=== PATIENT | female | born 1975 | race Two or more races ===

== ENCOUNTER 2018-09-29 16:14 | Inpatient (IN) | payer OTHER ==
[2018-09-29 22:06] VITALS: BMI 53.8
--- NOTE | 2018-09-30 00:35 | HP ---
CIWA Score - Admission Criteria [facility]ASAS Guidelines: Admission for Medically Managed Detox: Requires at least one of the followin. CIWA greater than 12 2. Seizures within the past 24 hours 3. Delirium tremens within the past 24 hours 4. Hallucinations within the past 24 hours 5. Acute intervention needed for co occurring medical disorder 6. Acute intervention needed for co occurring psychiatric disorder 7. Severe withdrawal that cannot be handled at a lower level of care (continued vomiting, continued diarrhea, abnormal vital signs) requiring intravenous medication and/or fluids 8. Admission ROS S - HPI Chief Complaint: Seeking admission to Rehab. Allergies/Adverse Reactions: Allergies Allergy/AdvReac Type Severity Reaction Status Date / Time amoxicillin Allergy Severe Rash Verified 09/29/18 21:55 ciprofloxacin [From Cipro] Allergy Severe Rash Verified 09/29/18 21:55 History of Present Illness: 43 years old female with a long history of cocaine and marijuana dependence is seeking admission to Rehab. Patient reports that this is her first admission to [facility] and first Rehabilitation. She has history of Sarcoidosis, hypertension, PCOS, Morbid obesity, stress incontinence, anxiety and depression. She reports suicide attempt at 33 years and denies suicidal ideation at this time. - Ebola screening Have you traveled outside of the country in the last 21 days: No Have you had contact with anyone from an Ebola affected area: No Do you have a fever: No - Review of Systems Constitutional: No Symptoms Reported EENT: reports: No Symptoms Reported Respiratory: reports: No Symptoms reported Cardiac: reports: No Symptoms Reported GI: reports: No Symptoms Reported : reports: No Symptoms Reported Musculoskeletal: reports: No Symptoms Reported Integumentary: reports: No Symptoms Reported Neuro: reports: No Symptoms reported Endocrine: reports: No Symptoms Reported Hematology: reports: No Symptoms Reported Psychiatric: reports: Judgement Intact, Mood/Affect Appropiate, Orientated x3 Other Systems: Reviewed and Negative Patient History - Patient Medical History Hx Anemia: No Hx Asthma: No Hx Chronic Obstructive Pulmonary Disease (COPD): No Hx Cancer: No Hx Cardiac Disorders: No Hx Congestive Heart Failure: No Hx Hypertension: Yes (HCTZ) Hx Hypercholesterolemia: No Hx Pacemaker: No HX Cerebrovascular Accident: No Hx Seizures: No Hx Diabetes: No Hx Gastrointestinal Disorders: No Hx Liver Disease: No Hx Genitourinary Disorders: Yes (STRESS INCONTINENCE) Hx Sexually Transmitted Disorders: No Hx Renal Disease (ESRD): No Hx Thyroid Disease: No Hx Human Immunodeficiency Virus (HIV): No (Negative 2018) Hx Hepatitis C: No Hx Depression: Yes (Wellbutrin) Hx Suicide Attempt: Yes (Attempt at age 33, denies sucidal ideation at this time ) Hx Bipolar Disorder: No Hx Schizophrenia: No Other Medical History: PCOS, STRESS INCONTINENCE, SARCOIDOSIS, ANXIETY -Not on medication - Patient Surgical History Past Surgical History: Yes Hx Neurologic Surgery: No Hx Cataract Extraction: No Hx Cardiac Surgery: No Hx Lung Surgery: No Hx Breast Surgery: No Hx Breast Biopsy: No Hx Abdominal Surgery: No Hx Appendectomy: No Hx Cholecystectomy: No Hx Genitourinary Surgery: No Hx Section: Yes (2014) Hx Orthopedic Surgery: No Hx Hysterectomy: No Other Surgical History: EYE SURGERY JUNE 2017, TONSILLECTOMY AT AGE 5 Anesthesia Reaction: No - PPD History Previous Implant?: Yes Documented Results: Negative w/o proof Implanted On Prior R Admission?: No PPD to be Administered?: Yes - Reproductive History Patient is a Female of Child Bearing Age (11 -55 yrs old): Yes Last Menstrual Period: 09/24/18 Patient : No - Smoking Cessation Smoking history: Current every day smoker Have you smoked in the past 12 months: Yes Aproximately how many cigarettes per day: 20 Hx Chewing Tobacco Use: No Initiated information on smoking cessation: Yes 'Breaking Loose' booklet given: 09/30/18 - Substance & Tx. History Hx Alcohol Use: No Hx Substance Use: Yes Substance Use Type: Cocaine, Marijuana Hx Substance Use Treatment: No - Substances abused Cocaine Substance route: Inhalation Frequency: Daily Amount used: 3 bags Age of first use: 42 Date of last use: 09/25/18 Marijuana/Hashish Substance route: Smoking Frequency: 1-3 times last 30 days Amount used: 2 blunt Age of first use: 16 Date of last use: 09/28/18 Family Disease History - Family Disease History Family Disease History: Diabetes: Father (LEUKEMIA), Mother (HTN), Heart Disease : Mother, Other: Grandparent (CERICAL CA, LUNG CANCER), Father Admission Physical Exam BHS - Vital Signs Vital Signs: Vital Signs - 24 hr 09/29/18 09/29/18 21:47 22:52 Temperature 97.6 F 97.6 F Pulse Rate 88 88 Respiratory 18 18 Rate Blood Pressure 139/83 139/83 - Physical General Appearance: Yes: No Apparent Distress, Nourished, Other HEENTM: Yes: Within Normal Limits Respiratory: Yes: Normal Breath Sounds, No Respiratory Distress Neck: Yes: Supple Breast: Yes: Breast Exam Deferred Cardiology: Yes: Regular Rhythm, Regular Rate Abdominal: Yes: Normal Bowel Sounds, Protuberent Genitourinary: Yes: Within Normal Limits Back: Yes: Normal Inspection Musculoskeletal: Yes: Within Normal Limits Extremities: Yes: Normal Inspection Neurological: Yes: Within Normal Limits, Alert, Normal Mood/Affect Integumentary: Yes: Warm Lymphatic: Yes: Within Normal Limits - Diagnostic (1) Cocaine dependence Current Visit: Yes Status: Chronic Qualifiers: Substance use status: uncomplicated Qualified Code(s): F14.20 - Cocaine dependence, uncomplicated (2) Marijuana dependence Current Visit: Yes Status: Chronic (3) Hypertension Current Visit: Yes Status: Chronic Qualifiers: Hypertension type: essential hypertension Qualified Code(s): I10 - Essential (primary) hypertension (4) Nicotine dependence Current Visit: Yes Status: Chronic Qualifiers: Nicotine product type: cigarettes Substance use status: uncomplicated Qualified Code(s): F17.210 - Nicotine dependence, cigarettes, uncomplicated (5) PCOS (polycystic ovarian syndrome) Current Visit: Yes Status: Chronic (6) Stress incontinence Current Visit: Yes Status: Chronic (7) Depression Current Visit: Yes Status: Chronic Qualifiers: Depression Type: unspecified Qualified Code(s): F32.9 - Major depressive disorder, single episode, unspecified (8) Anxiety Current Visit: Yes Status: Chronic Cleared for Admission S - Detox or Rehab [facility] Level of Care: Observation Bed Claeared for Rehab Admission: Yes Breathalyzer - Breathalyzer Breathalyzer: 0 Urine Drug Screen - Test Device Lot number: [id number] Expiration date: 07/15/20 - Control Is test valid?: Yes - Results Drug screen NEGATIVE: No Urine drug screen results: THC-Marijuana, TREVOR-Cocaine Inpatient Rehab Admission - Rehab Decision to Admit Inpatient rehab admission?: Yes - Initial Determination Are CD services needed?: No Free of communicable disease: Yes Not in need of hospitalization: Yes - Rehab Admission Criteria Previous failed treatment: Yes Poor recovery environment: Yes Comorbidities: Yes Lacks judgement: No Patient is meeting Inpatient Rehab admission criteria:: Yes
[2018-09-30] MEDS ORDERED: P-EPHED 60MG/TRIPROLIDI 2.5MG TABLET PO PRN (00:54)
[2018-09-30] MEDS ORDERED: ACETAMINOPHEN 325 MG TABLET (FP) PO PRN (00:54)
[2018-09-30] MEDS ORDERED: LOPERAMIDE HCL 2 MG CAPSULE PO PRN (00:54)
[2018-09-30] MEDS ORDERED: MAGNESIUM HYDROX 2400MG/30ML ORAL SUSPENSION 30 ML CUP PO PRN (00:54)
[2018-09-30] MEDS ORDERED: MENTHOL/PHENOL 1 EACH UD MM PRN (00:54)
[2018-09-30] MEDS ORDERED: MAGNESIUM CITRATE 300 ML BOTTLE PO PRN (00:54)
[2018-09-30] MEDS ORDERED: IBUPROFEN 400 MG TABLET (FP) PO PRN (00:54)
[2018-09-30] MEDS ORDERED: guaiFENesin 200 MG/10 ML 10 ML UNIT-DOSE CUPS PO PRN (00:54)
--- NOTE | 2018-09-30 07:47 | PN ---
S Progress Note Note: Patient's blood pressure this morning is B/P 168/111. Patient is asymptomatic. Vital Signs Temperature 97.9 F 09/30/18 07:15 Pulse Rate 94 H 09/30/18 07:15 Respiratory Rate 18 09/30/18 07:15 Blood Pressure 168/111 H 09/30/18 07:15 O2 Sat by Pulse Oximetry (%) Action: Clonindine 0.1mg tablet 1 tablet oral ordered
[2018-09-30] MEDS ORDERED: PT OWN MED DRAWER 7, Y5N ONE ×2 (08:00→08:33)
[2018-09-30] MEDS ORDERED: cloNIDine HCL 0.1 MG TABLET PO ONE (08:00)
[2018-09-30] MEDS: NICOTINE 21 MG/24 HOURS TOPICAL PATCH TD SCH (09:30)
[2018-09-30] MEDS: PRENATAL VITAMINS W/ FOLIC ACID TABLET (FP) PO SCH (09:30)
[2018-09-30] MEDS ORDERED: HYDROCHLOROTHIAZIDE 12.5 MG CAPSULE (FP) PO SCH (10:00)
[2018-09-30] MEDS: HYDROCHLOROTHIAZIDE 25 MG TABLET (FP) PO SCH (12:05)
[2018-09-30 12:24] LABS: HEMATOCRIT 40.1 % (32.4-45.2); HEMOGLOBIN 13.6 GM/dL (10.7-15.3); MCH 30.1 pg (25.7-33.7); MCHC 33.9 g/dl (32.0-36.0); MEAN CELL VOLUME 88.8 fl (80-96); MEAN PLT VOLUME 7.8 fl (7.5-11.1); RBC 4.51 M/mm3 (3.60-5.2); RDW 14.7 % (11.6-15.6); WHITE BLOOD COUNT 11.1 K/mm3 (4.0-10.0)
[2018-09-30 12:25] LABS: PH,URINE 5.5 (5.0-8.0); URINE APPEARANCE CLEAR; URINE BILIRUBIN NEGATIVE (NEGATIVE); URINE COLOR YELLOW; URINE GLUCOSE (UA) NEGATIVE (NEGATIVE); URINE KETONE NEGATIVE (NEGATIVE); URINE LEUK ESTERASE NEGATIVE (NEGATIVE); URINE NITRITE NEGATIVE (NEGATIVE); URINE PROTEIN NEGATIVE (NEGATIVE); URINE UROBILINOGEN 0.2 mg/dL (0.2-1.0)
[2018-09-30 12:32] LABS: ALBUMIN 2.9 g/dl (3.4-5.0); BILIRUBIN,TOTAL 0.3 mg/dL (0.2-1); BLOOD UREA NITROGEN 9.6 mg/dL (7-18); CALCIUM 8.2 mg/dL (8.5-10.1); CREATININE 0.8 mg/dL (0.55-1.3); TOT PROT 6.4 g/dl (6.4-8.2)
[2018-09-30] MEDS: NICOTINE POLACRILEX 2 MG GUM BC PRN (13:28)
[2018-09-30 13:34] LABS: PLATELET COUNT 234 K/MM3 (134-434)
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
--- NOTE | 2018-09-30 14:45 | EKG ---
Test Reason : Blood Pressure : / mmHG Vent. Rate : 082 BPM Atrial Rate : 082 BPM P-R Int : 164 ms QRS Dur : 082 ms QT Int : 400 ms P-R-T Axes : 050 029 023 degrees QTc Int : 467 ms NORMAL SINUS RHYTHM POSSIBLE LEFT ATRIAL ENLARGEMENT NONSPECIFIC T WAVE ABNORMALITY PROLONGED QT ABNORMAL ECG NO PREVIOUS ECGS AVAILABLE Confirmed by Nicolas Akbar MD ([id number]) on 09/30/2018 2:45:32 PM Referred By: KRIS Confirmed By:Nicolas Akbar MD
--- NOTE | 2018-09-30 14:58 | PN ---
B[facility] Progress Note (SOAP) Subjective: BP elevated, asymptomatic, denies headache, dizziness. Objective: PE; no neurological deficits, heart sounds regular, respirations easy and unlabored, PERRLA, CN 2-12 intact. 09/30/18 14:56 09/30/18 14:58 Vital Signs (72 hours) 09/29/18 09/29/18 09/30/18 21:47 22:52 01:45 Temperature 97.6 F 97.6 F 97.8 F Pulse Rate 88 88 88 Respiratory 18 18 18 Rate Blood Pressure 139/83 139/83 148/107 H 09/30/18 09/30/18 09/30/18 03:30 07:14 07:15 Temperature 97.9 F 97.9 F Pulse Rate 92 H 94 H Respiratory 20 18 18 Rate Blood Pressure 150/105 H 168/111 H 09/30/18 12:05 Temperature Pulse Rate 89 Respiratory 18 Rate Blood Pressure 123/89 Assessment: Elevated BP 09/30/18 14:57 Plan: HCTZ increased to 25mg daily with good effect. BP now at 123/89
[2018-09-30] MEDS: MAG HYDROX/AL HYDROX/SIMETH 30 ML UNIT-DOSE CUP PO PRN (15:17)
[2018-09-30] MEDS: THIAMINE HCL 100 MG TABLET (FP) PO SCH (22:01)
[2018-10-01] MEDS: PRENATAL VITAMINS W/ FOLIC ACID TABLET (FP) PO SCH (09:36)
[2018-10-01] MEDS: HYDROCHLOROTHIAZIDE 25 MG TABLET (FP) PO SCH (09:36)
[2018-10-01] MEDS: NICOTINE 21 MG/24 HOURS TOPICAL PATCH TD SCH (09:36)
[2018-10-01] MEDS ORDERED: COLLOIDAL OATMEAL 1 BAR EACH TP PRN (10:37)
--- NOTE | 2018-10-01 10:45 | PN ---
S Progress Note Note: Pt concerned about bites on legs- thinks it could be bed bugs.' Also with 3 cysts on underside of L breast- pt states has had this for 2 years. States also with chronically high WBC. States she is being worked up for cancer. PE- 2 areas of redness on R ant aspect of leg underside of L breast with serosanguinous clear minimal drainage with pressure, no surrounding area tenderness or erythema a/p: Insect bites- not c/w bed bug bites Cysts/drainage from breast- pt has f/u with PCP and breast docs. Pt has been getting regular f/u and in being worked up for malignancy. Dressing change and warm compress. Aveeno soap
[2018-10-01] MEDS: MELATONIN 5 MG TABLETS PO PRN (21:45)
[2018-10-01] MEDS: THIAMINE HCL 100 MG TABLET (FP) PO SCH (21:45)
[2018-10-02] MEDS ORDERED: PT OWN MED DRAWER 7, Y5N ONE (08:05)
[2018-10-02] MEDS: NICOTINE 21 MG/24 HOURS TOPICAL PATCH TD SCH (09:18)
[2018-10-02] MEDS: PRENATAL VITAMINS W/ FOLIC ACID TABLET (FP) PO SCH (09:18)
[2018-10-02] MEDS: HYDROCHLOROTHIAZIDE 25 MG TABLET (FP) PO SCH (09:18)
[2018-10-02] MEDS ORDERED: HALOPERIDOL DECANOATE 100 MG/ML IM ONE (10:00)
[2018-10-02] MEDS: THIAMINE HCL 100 MG TABLET (FP) PO SCH (21:56)
[2018-10-02] MEDS: MELATONIN 5 MG TABLETS PO PRN (21:56)
[2018-10-03] MEDS: NICOTINE 21 MG/24 HOURS TOPICAL PATCH TD SCH (09:51)
[2018-10-03] MEDS: HYDROCHLOROTHIAZIDE 25 MG TABLET (FP) PO SCH (09:51)
[2018-10-03] MEDS: PRENATAL VITAMINS W/ FOLIC ACID TABLET (FP) PO SCH (09:51)
[2018-10-03] MEDS: THIAMINE HCL 100 MG TABLET (FP) PO SCH (21:33)
[2018-10-03] MEDS: MELATONIN 5 MG TABLETS PO PRN (21:33)
[2018-10-03] MEDS: NICOTINE POLACRILEX 2 MG GUM BC PRN (21:34)
--- NOTE | 2018-10-03 21:48 | PN ---
BHS Progress Note Note: States bites area almost all gone. Denies current itching. One small area of induration w/ erythema on (R) leg area. Head w/o signs of insects/eggs. Plan: Shower/shampoo Clean all clothes and belongings. Transfer to a new room.
[2018-10-04] MEDS: PRENATAL VITAMINS W/ FOLIC ACID TABLET (FP) PO SCH (09:39)
[2018-10-04] MEDS: NICOTINE 21 MG/24 HOURS TOPICAL PATCH TD SCH (09:39)
[2018-10-04] MEDS: HYDROCHLOROTHIAZIDE 25 MG TABLET (FP) PO SCH (09:39)
[2018-10-04] MEDS: THIAMINE HCL 100 MG TABLET (FP) PO SCH (21:48)
[2018-10-04] MEDS: MELATONIN 5 MG TABLETS PO PRN (21:48)
[2018-10-05] MEDS: PRENATAL VITAMINS W/ FOLIC ACID TABLET (FP) PO SCH (10:24)
[2018-10-05] MEDS: HYDROCHLOROTHIAZIDE 25 MG TABLET (FP) PO SCH (10:24)
[2018-10-05] MEDS: NICOTINE 21 MG/24 HOURS TOPICAL PATCH TD SCH (10:26)
[2018-10-05] MEDS: MELATONIN 5 MG TABLETS PO PRN (21:40)
[2018-10-05] MEDS: THIAMINE HCL 100 MG TABLET (FP) PO SCH (21:40)
[2018-10-06] MEDS: MAG HYDROX/AL HYDROX/SIMETH 30 ML UNIT-DOSE CUP PO PRN (01:07)
[2018-10-06 07:08] VITALS: BP 134/91; PULSE 86; TEMP 98.1
--- NOTE | 2018-10-06 10:45 | PN ---
[facility] Progress Note Note: REHAB DISCHARGE NOTE: PATIENT ADMITTED 09/30/2018 - 10/06/2018 FOR COCAINE AND MARIJUANA DEPENDENCE. PATIENT COMPLETED REHAB WITHOUT ANY CHANGE IN MEDICAL CONDITION. PATIENT STATES SHE ACCOMPLISHED ALL REHAB GOALS AND IS MOTIVATED TO MAINTAIN SOBRIETY. PATIENT IS MEDICALLY STABLE AT THIS TIME AND DENIES SI/HI. Vital Signs Temperature 98.1 F 10/06/18 07:07 Pulse Rate 86 10/06/18 07:07 Respiratory Rate 20 10/06/18 07:07 Blood Pressure 134/91 10/06/18 07:07 O2 Sat by Pulse Oximetry (%) Laboratory Tests 09/29/18 09/30/18 09/30/18 22:54 09:10 09:10 WBC 11.1 H RBC 4.51 Hgb 13.6 Hct 40.1 MCV 88.8 MCH 30.1 MCHC 33.9 RDW 14.7 Plt Count 234 MPV 7.8 Sodium 141 Potassium 4.0 Chloride 108 H Carbon Dioxide 26 Anion Gap 7 L BUN 9.6 Creatinine 0.8 Est GFR (CKD-EPI)AfAm 103.19 Est GFR (CKD-EPI)NonAf 89.04 Random Glucose 156 H Calcium 8.2 L Total Bilirubin 0.3 AST 7 L ALT 11 L Alkaline Phosphatase 86 Total Protein 6.4 Albumin 2.9 L Urine Color Urine Appearance Urine pH Ur Specific [place] Urine Protein Urine Glucose (UA) Urine Ketones Urine Blood Urine Nitrite Urine Bilirubin Urine Urobilinogen Ur Leukocyte Esterase POC Urine HCG, Qual Negative RPR Titer 09/30/18 09/30/18 09:10 10:00 WBC RBC Hgb Hct MCV MCH MCHC RDW Plt Count MPV Sodium Potassium Chloride Carbon Dioxide Anion Gap BUN Creatinine Est GFR (CKD-EPI)AfAm Est GFR (CKD-EPI)NonAf Random Glucose Calcium Total Bilirubin AST ALT Alkaline Phosphatase Total Protein Albumin Urine Color Yellow Urine Appearance Clear Urine pH 5.5 Ur Specific [place] 1.024 Urine Protein Negative Urine Glucose (UA) Negative Urine Ketones Negative Urine Blood Negative Urine Nitrite Negative Urine Bilirubin Negative Urine Urobilinogen 0.2 Ur Leukocyte Esterase Negative POC Urine HCG, Qual RPR Titer Nonreactive ROS: NEGATIVE PE: ALERT AND ORIENTED X 3 SKIN WARM AND DRY +PERRLA, EOMS INTACT BL CAR S1S2 RESP CTA BL EXT FULL ROM, NO TREMORS AMB AD MAUREEN NEG SI/HI A/P: MARIJUANA DEPENDENCE COCAINE DEPENDENCE AFTERCARE ARRANGED FOR [facility] 10/09/2018 AT 9:30AM, NUMBER [phone]. PATIENT ENCOURAGED TO CONTINUE GROUP MEETINGS TO PREVENT RELAPSE AND TO FOLLOW UP WITH PCP FOR REGULAR MEDICAL MANAGEMENT.
== END 2018-10-06 09:50 | disposition home or self-care (01) | DRG 895 ==
LOC: YASAS 16:14 → Y3E 23:18 → Y3W 10-03 23:00 → Y3N 10-03 23:16 → Y3W 10-03 23:17
PROVIDERS: ADMIT Neuromusculoskeletal Medicine & OMM; ATTEND Neuromusculoskeletal Medicine & OMM
PROC: HZ42ZZZ Group Counseling for Substance Abuse Treatment, Cognitive-Behavioral (ICD-10-PCS; principal; 2018-09-29)
DX: F14.20 Cocaine dependence, uncomplicated (principal); Z68.43 Body mass index [BMI] 50.0-59.9, adult; F12.20 Cannabis dependence, uncomplicated; F17.210 Nicotine dependence, cigarettes, uncomplicated; F25.9 Schizoaffective disorder, unspecified; F32.9 Major depressive disorder, single episode, unspecified; F41.9 Anxiety disorder, unspecified; I10 Essential (primary) hypertension; Y93.9 Activity, unspecified; Y92.9 Unspecified place or not applicable; N60.02 Solitary cyst of left breast; S80.862A Insect bite (nonvenomous), left lower leg, initial encounter; S80.861A Insect bite (nonvenomous), right lower leg, initial encounter; W57.XXXA Bitten or stung by nonvenomous insect and other nonvenomous arthropods, initial encounter; K21.9 Gastro-esophageal reflux disease without esophagitis; N39.3 Stress incontinence (female) (male); E28.2 Polycystic ovarian syndrome; D86.9 Sarcoidosis, unspecified; E66.01 Morbid (severe) obesity due to excess calories; Z88.1 Allergy status to other antibiotic agents; Z91.5 Personal history of self-harm
CPT/HCPCS: 36415; 80053; 81003; 81025; 85027; 86593; 93005; 93010; J0735